=== PATIENT | female | born 1985 | race Caucasian/White ===

== ENCOUNTER 2017-06-18 18:46 | Emergency (ER) | payer OTHER, SELFPAY ==
[2017-06-18 18:54] VITALS: BP 108/68; PULSE 103; RESP 16; TEMP 37.7; O2SAT 99; BMI 26.6
--- NOTE | 2017-06-18 19:14 | HMH.EDGENADL ---
ED Disposition Condition on Discharge: Good - Critical Care Critical Care Time: No <Pako Perez Kurt - Last Filed: 06/18/17 19:55> <Brayan Bowden - Last Filed: 06/18/17 21:26> Clinical Impression: Tonsillitis, Strep pharyngitis, Influenza A Disposition: Home, Self-Care Instructions: DI for Strep Throat Additional Instructions: fluids and use meds and see pcp for follow up Prescriptions: cephALEXin [Keflex 500mg Cap] 500 mg PO Q8H #21 cap Ondansetron HCl [Zofran 4mg Tab] 4 mg PO Q8H #20 tab Oseltamivir Phosphate [Tamiflu 75mg Capsule] 75 mg PO BID #10 cap Referrals: Brayan Bowden MD [Primary Care Provider] - Forms: Work/School Release Attestation: On 06/18/17, the high probability of a clinically significant, sudden or life threatening deterioration of the following system(s) required my full and direct attention, intervention and personal management. The time I documented below is in addition to time spent performing reported procedures but includes the following listed in this critical care notation. Medical Decision Making - Medical Records Medical records reviewed: Yes: I reviewed the patient's medical records. - Lab Data Lab results reviewed: Yes: I reviewed the patient's lab results. Result diagrams: 06/18/17 19:35 - Alek Inquiry Pt receiving controlled substance: No <KeilyeveliaPako - Last Filed: 06/18/17 19:55> - Lab Data Result diagrams: 06/18/17 19:35 06/18/17 19:35 - CT Data CT Scan: Other Time Received: 20:[address] Reviewed: Yes: I have viewed the radiologist's interpretation <Brayan Bowden - Last Filed: 06/18/17 21:26> Vital Signs: 06/18/17 18:54 Temperature 99.9 F H Temperature Source Oral Pulse Rate [Brachial] 103 H Respiratory Rate 16 Blood Pressure [Right Arm] 108/68 Blood Pressure Mean [Right Arm] 81 Blood Pressure Source [Right Arm] Automatic Cuff Blood Pressure Position [Right Arm] Sitting 02 Sat by Pulse Oximetry 99 Oxygen Delivery Method Room Air - Lab Data Lab Results 06/18/17 19:00: Influenza Type A Ag Positive A, Influenza Type B Ag Negative, Group A Strep Rapid Positive A 06/18/17 19:35: WBC 18.3 H, RBC 4.73, Hgb 13.8, Hct 41.5, MCV 87.8, MCH 29.2, MCHC 33.3, RDW 13.2, Plt Count 181, MPV 8.0, Neut % (Auto) 90.3 H, Lymph % (Auto) 4.8 L, Alcorn % (Auto) 3.5, Eos % (Auto) 1.0, Baso % (Auto) 0.3, Neut # (Auto) 16.5 H, Lymph # (Auto) 0.9, Alcorn # (Auto) 0.6, Eos # (Auto) 0.2, Baso # (Auto) 0.1, Total Counted 100, Neutrophils % (Manual) 88 H, Lymphocytes % (Manual) 8 L, Monocytes % (Manual) 4, Platelet Estimate Normal, RBC Morphology Normal 06/18/17 19:35: Sodium 131 L, Potassium 3.4 L, Chloride 100, Carbon Dioxide 20 L, Anion Gap 14.4, BUN 9, Creatinine 0.79, Estimated Creat Clear 113, Estimated GFR 84, Est GFR ( Amer) 102, Glucose 103, Calcium 8.7, Total Bilirubin 0.7, AST 18, ALT 29, Alkaline Phosphatase 90, Total Protein 7.1, Albumin 3.5, Globulin 3.6 H, Albumin/Globulin Ratio 1.0 L 06/18/17 19:45: Lactic Acid 1.3 Orders (Tests/Meds): ED MEDICATIONS Discontinued Medications Generic Name Dose Route Start Last Admin Trade Name Freq PRN Reason Stop Dose Admin Lactated Ringer's 1,000 mls @ 999 mls/hr 06/18/17 19:30 Lactated Ringer's 1000 Ml Bag IV 06/18/17 20:30 .Q1H1M JOSE C Ceftriaxone Sodium 1 gm/ 50 mls @ 100 mls/hr 06/18/17 19:21 06/18/17 19:50 Sodium Chloride IV 06/18/17 19:50 100 mls/hr ONCE ONE Administration Sodium Chloride 500 mls @ 500 mls/hr 06/18/17 19:30 Sod Chloride 0.9% 500ml Bag IV 07/18/17 19:29 .Q1H JOSE C Sodium Chloride 500 mls @ 500 mls/hr 06/18/17 19:30 Sod Chloride 0.9% 500ml Bag IV 07/18/17 19:29 .Q1H JOSE C Sodium Chloride 500 mls @ 500 mls/hr 06/18/17 19:56 06/18/17 20:00 Sod Chloride 0.9% 500ml Bag IV 06/18/17 20:55 500 mls/hr .Q1H JOSE C Administration Sodium Chloride 500 mls @ 500 mls/hr 06/18/17 19:59 Sod Chloride 0.9% 500ml Bag I
[2017-06-18 19:17] LABS: Strep Scrn Group A (Rapid) Positive (Negative)
--- NOTE | 2017-06-18 19:27 | CT_ITS ---
CT soft tissue neck w con INDICATION: Neck pain, erythema, swelling, right peritonsillar abscess ITS.REASON: right tonsillar abscess ORDERING PHYSICIAN: Pako Perez MD PATIENT AGE: 32 years COMPARISON: None TECHNIQUE: Axial images are obtained with 75 mL of Isovue-370 contrast. Sagittal and coronal reformatted images are reviewed as well. FINDINGS: The nasopharynx has an unremarkable appearance. The orbits are unremarkable. There is a small air-fluid level in the left maxillary sinus. The frontal, sphenoid, ethmoid, and mastoid sinuses are unremarkable. There is hypertrophy of the parapharyngeal tonsils on both sides. A small prominent on the right. There is a ill-defined area of decreased attenuation involving the right parapharyngeal tonsil measuring 11 mm and may represent a developing abscess/phlegmonous change. No gas evident and no enhancing rim/capsule. Another subtle area of decreased attenuation involving the left parapharyngeal tonsil at 8 mm. Developing abscess/phlegmonous changes also considered here. The airway is narrowed at the hypopharynx and oropharynx. There is bilateral cervical adenopathy with nodes measuring up to 2.5 x 1.7 cm in the both the right and left jugulodigastric chain. The epiglottis has an unremarkable appearance. The lung apices are clear. No acute bony anomalies. IMPRESSION: Tonsillitis with hypertrophy of the parapharyngeal tonsils with bilateral areas of decreased attenuation consistent with developing abscess/phlegmonous change. There is moderate narrowing of the hypopharyngeal airway. Bilateral cervical adenopathy
[2017-06-18 19:47] LABS: Basophils # 0.1 K/mm3 (0-0.2); Basophils % 0.3 % (0.1-2.0); Eosinophils # 0.2 K/mm3 (0.0-0.4); Hematocrit 41.5 % (37.0-47.0); Hemoglobin 13.8 g/dL (12.2-16.2); Lymphocytes # 0.9 K/mm3 (0.7-4.5); Lymphocytes % 4.8 K/mm3 (10-50); Mean Corpuscular HGB Conc 33.3 g/dL (31.8-35.4); Mean Corpuscular Hemoglobin 29.2 pg (27.0-31.2); Mean Corpuscular Volume 87.8 fl (81-99); Monocytes # 0.6 K/mm3 (0.1-1.0); Monocytes % 3.5 % (1.7-9.3); Neutrophils # 16.5 K/mm3 (1.8-7.8); Neutrophils % 90.3 % (37.0-80.0); Platelet Count 181 K/mm3 (142-424); Red Blood Count 4.73 M/mm3 (4.20-5.40); Red Cell Distribution Width 13.2 % (11.5-17.5); White Blood Count 18.3 K/mm3 (4.8-10.8)
[2017-06-18 19:50] LABS: MANUAL DIFFERENTIAL MANUAL DIFFERENTIAL (MANUAL DIFF)
[2017-06-18 19:59] LABS: Alanine Aminotransferase 29 U/L (12-78); Albumin Level 3.5 gm/dL (3.4-5.0); Alkaline Phosphatase 90 U/L (46-116); Anion Gap 14.4 mEq/L (5-15); Aspartate Amino Transferase 18 U/L (15-37); Bilirubin,Total 0.7 mg/dL (0.2-1.0); Blood Urea Nitrogen 9 mg/dL (7-18); Calcium 8.7 mg/dL (8.5-10.1); Carbon Dioxide 20 mmol/L (21.0-32.0); Chloride 100 mmol/L (98-107); Creatinine Clearance Estimated 113 mL/min (0-300); Creatinine,Serum 0.79 mg/dL (0.55-1.02); Estimated Glomerular Filt Rate 84 ml/min (>60); GFR (African American) 102 ML/MIN (>60); Globulin 3.6 gm/dl (1.3-3.2); Glucose 103 mg/dL (74-106); Potassium 3.4 mmoL/L (3.5-5.1); Sodium 131 mmol/L (136-145); Total Protein,Serum 7.1 gm/dL (6.4-8.2)
[2017-06-18 20:14] LABS: Lactic Acid 1.3 mmol/L (0.4-2.0)
[2017-06-18 20:35] LABS: Lymphocytes % 8 % (10-50); Monocytes % 4 % (2-9); Neutrophils % 88 % (42-76); Total Cells Counted 100
[2017-06-18 20:38] LABS: Platelet Estimate Normal; RBC Morphology Normal
[2017-06-18 22:02] VITALS: BP 108/58; PULSE 91; RESP 16
== END 2017-06-18 22:05 | disposition home or self-care (01) ==
PROVIDERS: Emergency Provider Emergency Medicine; Family Provider Emergency Medicine; PCP Emergency Medicine
DX: J03.90 Acute tonsillitis, unspecified (principal); J02.0 Streptococcal pharyngitis; J09.X2 Influenza due to identified novel influenza A virus with other respiratory manifestations; F17.210 Nicotine dependence, cigarettes, uncomplicated; Z88.1 Allergy status to other antibiotic agents
CPT/HCPCS: 70491; 80053; 83605; 85007; 85025; 87040; 87275; 87276; 87430; 96360; 96365; 96366; 96375; 99284; J2405; Q9967

== ENCOUNTER → 2018-10-07 13:56 | Outpatient (CLI) | payer OTHER, SELFPAY ==
[2018-10-07 14:20] LABS: Anion Gap 10.8 mEq/L (5-15); Blood Urea Nitrogen 10 mg/dL (7-18); Calcium 8.9 mg/dL (8.5-10.1); Carbon Dioxide 28 mmol/L (21.0-32.0); Chloride 104 mmol/L (98-107); Estimated Glomerular Filt Rate 83 ml/min (>60); GFR (African American) 100 ML/MIN (>60); Glucose 82 mg/dL (74-106); Potassium 4.8 mmoL/L (3.5-5.1); Sodium 138 mmol/L (136-145)
== END ==
PROVIDERS: PCP Nurse Practitioner Family; Visit Provider Nurse Practitioner Family
DX: R09.1 Pleurisy (principal); R05 Cough; R06.02 Shortness of breath; R60.9 Edema, unspecified
CPT/HCPCS: 80048; 83880

== ENCOUNTER → 2019-10-28 17:26 | Outpatient (CLI) | payer OTHER, SELFPAY ==
[2019-10-28 17:47] LABS: Basophils # 0.1 K/mm3 (0-0.2); Basophils % 1.3 % (0.1-2.0); Eosinophils # 0.2 K/mm3 (0.0-0.4); Eosinophils % 1.8 % (0.1-12.0); Hematocrit 42.9 % (37.0-47.0); Hemoglobin 14.2 g/dL (12.2-16.2); Lymphocytes # 2.1 K/mm3 (0.7-4.5); Lymphocytes % 18.6 % (10-50); Mean Corpuscular HGB Conc 33.1 g/dL (31.8-35.4); Mean Corpuscular Hemoglobin 29.8 pg (27.0-31.2); Mean Platelet Volume 8.7 fl (7.4-10.4); Monocytes # 0.3 K/mm3 (0.1-1.0); Monocytes % 2.8 % (1.7-9.3); Neutrophils # 8.4 K/mm3 (1.8-7.8); Neutrophils % 75.6 % (37.0-80.0); Platelet Count 287 K/mm3 (142-424); Red Blood Count 4.77 M/mm3 (4.20-5.40); Red Cell Distribution Width 14.6 % (11.5-17.5); White Blood Count 11.1 K/mm3 (4.8-10.8)
[2019-10-28 18:14] LABS: Alanine Aminotransferase 18 U/L (12-78); Albumin Level 4.2 g/dl (3.5-5.0); Albumin/Globulin Ratio 1.6 (1.1-1.8); Alkaline Phosphatase 110 U/L (38-126); Anion Gap 11.2 mEq/L (5-15); Aspartate Amino Transferase 22 U/L (14-36); Bilirubin,Total 0.3 mg/dl (0.2-1.3); Blood Urea Nitrogen 7 mg/dl (7-17); Carbon Dioxide 28 mmol/L (22.0-30.0); Chloride 105 mmol/L (98-107); Chol/HDL Ratio 3.8 (1-3.5); Cholesterol 199 mg/dl (140-200); Estimated Glomerular Filt Rate 82 ml/min (>60); GFR (African American) 99 ML/MIN (>60); Globulin 2.7 g/dL (1.3-3.2); Glucose 92 mg/dl (74-100); HDL Cholesterol 52 mg/dl (40-60); Potassium 4.2 mmoL/L (3.5-5.1); Sodium 140 mmol/L (136-145); Total Protein,Serum 6.9 g/dl (6.3-8.2); Triglycerides 188 mg/dl (30-150); VLDL Cholesterol 38 mg/dL (0-40)
[2019-10-28 18:25] LABS: Direct LDL Cholesterol 146.62 mg/dL (100-129)
[2019-10-28 18:32] LABS: T4 (Thyroxine) 9.5 ug/dl (5.53-11.0)
[2019-10-28 18:45] LABS: Thyroid Stimulating Hormone 1.23 uIU/mL (0.465-4.68)
[2019-10-30 11:13] LABS: Vitamin D 25 Hydroxy 33.8 ng/mL (30.0-100.0)
== END ==
PROVIDERS: Visit Provider Physician Assistant
DX: R51 Headache (principal); R60.9 Edema, unspecified
CPT/HCPCS: 80053; 80061; 82652; 84436; 84443; 85025

== ENCOUNTER → 2020-08-24 12:53 | Outpatient (CLI) | payer OTHER, SELFPAY ==
--- NOTE | 2020-08-24 12:59 | US_ITS ---
PROCEDURE: US TRANSVAGINAL CLINICAL INDICATION: Pelvic pain, heavy cycles COMPARISON: No exams were available for comparison FINDINGS: UTERUS: 11cm x 6cmx 5cm with a combined endometrial thickness of 14.4mm LEFT OVARY: [id number] with a volume of 8.7ml. RIGHT OVARY: [id number] with a volume of 5.1ml. Nabothian cysts are present the cervical region IMPRESSION: Bulky uterus with thickened endometrium Dictated by: Perry Nair MD 08/24/2020 15:27 Perry Nair MD in OV 08/24/2020 15:27
[2020-08-24 15:23] LABS: Basophils # 0.1 K/mm3 (0-0.2); Basophils % 0.6 % (0.1-2.0); Eosinophils # 0.2 K/mm3 (0.0-0.4); Eosinophils % 2.1 % (0.1-12.0); Hematocrit 42.1 % (37.0-47.0); Hemoglobin 13.8 g/dL (12.2-16.2); Lymphocytes # 2.2 K/mm3 (0.7-4.5); Lymphocytes % 21.6 % (10-50); Mean Corpuscular HGB Conc 32.9 g/dL (31.8-35.4); Mean Corpuscular Volume 88.4 fl (81-99); Mean Platelet Volume 8.6 fl (7.4-10.4); Monocytes # 0.4 K/mm3 (0.1-1.0); Neutrophils # 7.3 K/mm3 (1.8-7.8); Neutrophils % 71.8 % (37.0-80.0); Platelet Count 298 K/mm3 (142-424); Red Blood Count 4.76 M/mm3 (4.20-5.40); Red Cell Distribution Width 14.5 % (11.5-17.5); White Blood Count 10.2 K/mm3 (4.8-10.8)
[2020-08-24 15:36] LABS: Chloride 108 mmol/L (98-107); Sodium 140 mmol/L (136-145)
[2020-08-24 15:37] LABS: HCG Qualitative, Serum Negative (Negative); Potassium 3.9 mmoL/L (3.5-5.1)
[2020-08-24 15:39] LABS: Alanine Aminotransferase 18 U/L (12-78); Alkaline Phosphatase 115 U/L (38-126); Anion Gap 12.9 mEq/L (5-15); Aspartate Amino Transferase 23 U/L (14-36); Bilirubin,Total 0.4 mg/dl (0.2-1.3); Blood Urea Nitrogen 7 mg/dl (7-17); Carbon Dioxide 23 mmol/L (22.0-30.0); Estimated Glomerular Filt Rate 114 ml/min (>60); GFR (African American) 138 ML/MIN (>60)
[2020-08-24 15:40] LABS: Albumin Level 4.2 g/dl (3.5-5.0); Albumin/Globulin Ratio 1.5 (1.1-1.8); Calcium 9.6 mg/dl (8.4-10.2); Globulin 2.8 g/dL (1.3-3.2); Glucose 99 mg/dl (74-100)
== END ==
PROVIDERS: PCP Emergency Medicine; Visit Provider Nurse Practitioner Family
DX: R10.2 Pelvic and perineal pain (principal); N92.6 Irregular menstruation, unspecified; R10.9 Unspecified abdominal pain; R11.0 Nausea; M54.5 Low back pain
CPT/HCPCS: 76830; 80053; 84703; 85025

== ENCOUNTER → 2020-08-24 15:13 | Outpatient (CLI) | payer OTHER, SELFPAY | PROVIDERS: Visit Provider Nurse Practitioner Family | DX: R10.9 Unspecified abdominal pain (principal); R11.0 Nausea | CPT/HCPCS: 80053; 84703; 85025 ==

== ENCOUNTER → 2020-09-29 09:07 | Outpatient (CLI) | payer OTHER, SELFPAY ==
[2020-09-29 09:39] LABS: Basophils # 0.1 K/mm3 (0-0.2); Basophils % 0.7 % (0.1-2.0); Eosinophils # 0.3 K/mm3 (0.0-0.4); Eosinophils % 3.1 % (0.1-12.0); Hematocrit 42.4 % (37.0-47.0); Hemoglobin 13.9 g/dL (12.2-16.2); Lymphocytes % 20.6 % (10-50); Mean Corpuscular HGB Conc 32.9 g/dL (31.8-35.4); Mean Corpuscular Hemoglobin 28.3 pg (27.0-31.2); Mean Platelet Volume 7.7 fl (7.4-10.4); Monocytes # 0.4 K/mm3 (0.1-1.0); Monocytes % 3.5 % (1.7-9.3); Neutrophils # 7.1 K/mm3 (1.8-7.8); Platelet Count 233 K/mm3 (142-424); Red Blood Count 4.93 M/mm3 (4.20-5.40); Red Cell Distribution Width 14.4 % (11.5-17.5); White Blood Count 9.8 K/mm3 (4.8-10.8)
[2020-09-29 10:43] LABS: Chloride 109 mmol/L (98-107); Sodium 137 mmol/L (136-145)
[2020-09-29 10:44] LABS: Potassium 3.8 mmoL/L (3.5-5.1)
[2020-09-29 10:46] LABS: Blood Urea Nitrogen 8 mg/dl (7-17); Estimated Glomerular Filt Rate 114 ml/min (>60); GFR (African American) 138 ML/MIN (>60)
[2020-09-29 10:47] LABS: Anion Gap 12.8 mEq/L (5-15); Calcium 9.3 mg/dl (8.4-10.2); Carbon Dioxide 19 mmol/L (22.0-30.0); Glucose 109 mg/dl (74-100)
[2020-09-29 10:48] LABS: HCG Qualitative, Serum Negative (Negative)
== END ==
PROVIDERS: Visit Provider Nurse Practitioner Obstetrics & Gynecology
DX: Z01.818 Encounter for other preprocedural examination (principal); Z11.52 Encounter for screening for COVID-19; N80.0 Endometriosis of uterus; N85.2 Hypertrophy of uterus; N92.0 Excessive and frequent menstruation with regular cycle; R10.2 Pelvic and perineal pain
CPT/HCPCS: 80048; 84703; 85025; U0003

== ENCOUNTER 2020-10-02 08:08 | Observation (INO) | payer OTHER, SELFPAY ==
[2020-09-28 13:28] VITALS: BMI 32.5
[2020-10-02] VITALS (24 sets, daily range): BP systolic 97–127; BP diastolic 55–78; PULSE 50–100; RESP 16–18; TEMP 36.2–43; O2SAT 90–100
--- NOTE | 2020-10-02 07:03 | P.PN_ITS ---
[facility] Anesthesia Checklist - Structural Data Admitted From: Home Planned Operative Procedure/s: lavh,bso Consent for Planned Operative Procedure(s) Verified: Yes - Additional verifications Anesthesia Reactions: No Hx Blood Transfusions: No Blood Transfusion Reaction: No - Airway Assessment C-Spine Mobility Assessed: Yes TMJ Mobility Assessed: Yes Dentition: Edentulous - Neurological Assessment Level of Consciousness: Awake, Alert, Appropriate - Anesthesia Plan Anesthesia Risk discussed: Yes Anesthesia Plan: Verified ASA Class: II Anesthesia Type: General [facility] History I have reviewed the patient's past medical history: Yes Medical History: Denies:: Cancer, Diabetes Mellitus Type 1, Diabetes Mellitus Type 2, MRSA, Seizures *Have you ever received a pneumonia vaccine?: No *Have you received a flu vaccine this season?: Yes Other Medical History: Denies: Blood Transfusion Reaction Anesthesia experience/problems:: none Other Surgeries: Yes: No Previous Surgery, Appendectomy, Other Amputation: No Fractures: Yes (L ANKLE) - *Social History Last grade of school completed: Some college Smoking Status: Current every day smoker Tobacco Type: cigarettes # Packs/Day (cigarettes): 1 Alcohol Intake: never Substance Use Type: denies use *Occupational Status:: employed Housing: house Household Members: family *Travel in the last 8 weeks: None Family Hx:: Non-contributory
--- NOTE | 2020-10-02 09:45 | P.PN_ITS ---
[facility] Anesthesia Record Part I Intake, IV Amount: 1,400 Estimated blood loss (mL): 150 Urine output (mL): 50 Blood Pressure: 127/74 SaO2: 90 Pulse Rate: 100 Respiratory Rate: 16 Temperature: 99.5 F Patient is:: Drowsy, Stable Stable to PACU at:: 09:40
--- NOTE | 2020-10-02 10:00 | HMH.OPNOTE ---
Date of procedure: 10/02/20 Pre-op Diagnosis:: Menorrhagia, uterine hypertrophy, adenomyosis, pelvic pain, right thigh lesion Post-op Diagnosis:: Menorrhagia, adenomyosis, uterine hypertrophy, pelvic pain, right thigh lesion Procedure performed:: Laparoscopically assisted vaginal hysterectomy, bilateral salpingectomy, removal of right thigh skin lesion Surgeon:: Robbin Oswald MD Graphics Edit Technician(s):: Rox Deras SUPPORT DBA:: Kalin Martin Anesthesia: GETA Estimated blood loss (mL): 150 Clinical Note:: She is a 35-year-old lady who is had a previous tubal occlusion. She has had increasing heavy periods as well as pain with intercourse and pain with her periods. Ultrasound showed that the uterus was somewhat enlarged. She also had a 5 mm raised lesion on her thigh that was multicolored. She says that this bothers her when she was shaving and as result of that we elected to remove this at the time of her hysterectomy as well. Operative findings:: She had a small multicolored raised lesion on the right thigh. She had a normal appearing pelvis. The uterus itself was enlarged and bulky. The tubes had been previously occluded. Ovaries and tubes otherwise appeared normal. Operative note:: She was taken to the operating room where general anesthesia was found be adequate. She was prepped and draped in normal sterile fashion in the semilithotomy position. She had a small lesion on the right thigh and using toothed pickups and Metzenbaum scissors I shaved this off the thigh. Silver nitrate was applied. Sterile dressing applied. A weighted speculum was placed in the vagina and the anterior lip of the cervix was grasped with a tenaculum. An acorn uterine manipulator was then placed within the cervical os. I then changed gloves. I injected 10 cc of 0.5% ropivacaine around the umbilicus and made a small incision within the umbilicus. I inserted a Veress needle into the abdominal cavity. The abdominal cavity was then insufflated with carbon dioxide gas to a pressure of 20 mmHg. I then inserted an 11 mm trocar under direct vision. I injected through and through the pubic hairline, made a small incision here and inserted a 5 mm trocar under direct vision. I identified the inferior epigastric arteries on the left side, went lateral to these and injected through and through. I then made a small incision and inserted an 11 mm trocar under direct vision. A similar 11 mm trocar was placed on the right side. The left round ligament was then grasped and cut through with harmonic scalpel. This was followed by opening up the peritoneum anteriorly to the midline. I then grasped the tube on the left side and cut through this. This is followed by cutting through the left utero-ovarian ligament. I used Harmonic scalpel on the coagulation mode. I then took down the posterior aspect of the broad ligament to the level of the uterosacral ligament. I then skeletonized the uterine arteries on the left side and placed hemoclips on these. Using the harmonic scalpel on coagulation mode adjacent to the cervix I then took down these uterine arteries. I then further freed up the bladder anteriorly and laterally on the left side. I then turned my attention to the right side where I grasped the right round ligament. The right tube was adherent to the right pelvic sidewall and using harmonic scalpel I was able to free this up. I then cut through the right round ligament. I then took down the anterior peritoneum to the midline joining up with the other side. I further dissected the bladder off. The posterior aspect of the right broad ligament was then taken down with harmonic scalpel. I skeletonized the uterine arteries on the right side. I applied hemoclips to the uterine arteries and staying adjacent to the cervix on the right side I took down the uterine arteries with harmonic scalpel on coagulation mode. I further freed up the bladder. We then assured hemostasis.
--- NOTE | 2020-10-02 10:10 | PC.NURSE ---
Report received from Yoselin KAPLAN.
--- NOTE | 2020-10-02 10:20 | PC.NURSE ---
Pt. arrived to room 279 via bed.
--- NOTE | 2020-10-02 10:52 | HMH.ANESII ---
[facility] Anesthesia Record Part II Discharge Time: 10:10 Destination: Obstetric PACU nurse assessment reviewed?: Yes Patient Condition:: Good Anesthesia Complications:: None Swallowing reflex intact?: Yes Cyanosis?: No Blood Pressure: 106/64 Pulse Rate: 80 Temperature: 97.1 F Mental Status: Alert & Oriented Pain level:: 4 Nausea and/or vomitting:: None Intake, IV Amount: 0
[2020-10-02 16:18] LABS: Hematocrit 39.3 % (37.0-47.0); Hemoglobin 12.6 g/dL (12.2-16.2)
[2020-10-02 17:08] LABS: Microscopic,Cath URINE MICROSCOPIC (MICROSCOPIC)
[2020-10-02 17:16] LABS: Appearance,Urine/Cath CLEAR (Clear); Bilirubin,Cath Negative (Negative); Blood, Urine/Cath Negative (Negative); Color,Urine/Cath STRAW (Yellow); Glucose,Urine/Cath (UA) Negative (Negative); Ketones,Urine/Cath Negative (Negative); Leukocyte Esterase,Cath Negative (Negative); Nitrate,Cath Negative (Negative); Protein,Urine/Cath Negative (Negative); Urobilinogen,Cath 0.2 EU/dl (0.2)
[2020-10-02 17:46] LABS: Bacteria,Urine/Cath 1+ /lpf
--- NOTE | 2020-10-02 18:20 | PC.NURSE ---
AUGUST Laboy placed on pt. Pt. Vomitted 250 ml. MD Order from Dr. Oswald received to give Scopolamine patch. Pt. reports AUGUST Binder is helping pain. Pain level down to 4/10. Pt. denies needs, will continue to monitor.
[2020-10-03] VITALS: BP 104/52; PULSE 68; RESP 16; O2SAT 95
[2020-10-03 04:00] VITALS: BP 108/69; PULSE 81; RESP 16; TEMP 36.9; O2SAT 95
--- NOTE | 2020-10-03 04:05 | PC.NURSE ---
PT HAS RESTED WELL THIS SHIFT, PAIN WELL CONTROLLED. A&O X 4. VITAL SIGNS STABLE, AFEBRILE. HEART RATE REGULAR, NO EDEMA NOTED. IV PATENT TO RIGHT FOREARM. PT TOLERATED CLEAR LIQUID DIET AND CRACKER. NO N/V THIS SHIFT. LUNGS CTAB. PT USING INCENTIVE SPIROMETER INSTRUCTED. OCCASIONAL COUGH NOTED WITH USE. PILLOW PROVIDED FOR SPLINTING. ABD SOFT AND MILDLY TENDER. BOWEL SOUNDS ACTIVE X 4 QUADS. LAP SITES X 4 NOTED. DRESSINGS C/D/I. GARCIA CATH PATENT WITH DARK YELLOW URINE. SCANT AMOUNT OF VAGINAL BLEEDING NOTED TO NEFTALI-PAD. SCUDS IN PLACE BILATERALLY. NO NEEDS AT THIS TIME. CALL LIGHT WITHIN REACH. WILL CONTINUE TO MONITOR. S.O. AT BEDSIDE
[2020-10-03 07:21] LABS: Basophils % 0.2 % (0.1-2.0); Eosinophils # 0.1 K/mm3 (0.0-0.4); Eosinophils % 0.3 % (0.1-12.0); Hematocrit 35.7 % (37.0-47.0); Hemoglobin 11.7 g/dL (12.2-16.2); Lymphocytes % 19.8 % (10-50); Mean Corpuscular HGB Conc 32.8 g/dL (31.8-35.4); Mean Corpuscular Hemoglobin 28.8 pg (27.0-31.2); Mean Corpuscular Volume 87.8 fl (81-99); Monocytes # 0.6 K/mm3 (0.1-1.0); Monocytes % 3.9 % (1.7-9.3); Neutrophils # 11.3 K/mm3 (1.8-7.8); Neutrophils % 75.8 % (37.0-80.0); Platelet Count 235 K/mm3 (142-424); Red Blood Count 4.07 M/mm3 (4.20-5.40); Red Cell Distribution Width 14.4 % (11.5-17.5); White Blood Count 14.9 K/mm3 (4.8-10.8)
[2020-10-03 07:29] LABS: Anion Gap 9.9 mEq/L (5-15); Blood Urea Nitrogen 11 mg/dl (7-17); Calcium 8.4 mg/dl (8.4-10.2); Carbon Dioxide 24 mmol/L (22.0-30.0); Chloride 109 mmol/L (98-107); Creatinine Clearance Estimated 153 mL/min (50-200); Estimated Glomerular Filt Rate 95 ml/min (>60); GFR (African American) 115 ML/MIN (>60); Glucose 92 mg/dl (74-100); Potassium 3.9 mmoL/L (3.5-5.1); Sodium 139 mmol/L (136-145)
--- NOTE | 2020-10-03 07:47 | HMH.PHAVTE ---
[facility] Pharm[facility] VTE Monitoring - Patient Demographics Admission date: 10/02/20 Report Date: 10/03/20 Time: 07:47 Allergies/Adverse Reactions: Patient Allergies nitrofurantoin [From MACROBID] Allergy (Mild, Verified 10/02/20 06:20) Height: 1.63 m Weight: 86.183 kg - VTE Risk Labs: VTE Related Lab Results Hgb 11.7 g/dL (12.2-16.2) L 10/03/20 06:37 Hct 35.7 % (37.0-47.0) L 10/03/20 06:37 Plt Count 235 K/mm3 (142-424) 10/03/20 06:37 BUN 11 mg/dl (7-17) 10/03/20 06:37 Creatinine 0.70 mg/dl (0.52-1.04) 10/03/20 06:37 Estimated Creat Clear 153 mL/min (50-200) 10/03/20 06:37 Was VTE Risk Assessment Performed: Yes VTE Score: 1 VTE Risk Level: Very Low Risk - Prophylaxis VTE Prophylaxis Ordered?: Yes Types of VTE Prophylaxis: IPCS Thigh High, Pharmacological Location of Applied Device: Bilateral Lower Extremeties Pharmacologic Type: Enoxaparin
[2020-10-03 08:00] VITALS: BP 118/78; PULSE 83; RESP 18; TEMP 36.8; O2SAT 95
--- NOTE | 2020-10-03 08:40 | HMH.HP ---
*Admission Date: 10/02/20 *Chief complaint: Heavy periods, pelvic pain *History of present illness: She is a 35-year-old lady who complains of very heavy periods. She had an ultrasound that showed a bulky anteverted uterus. Her uterus was tender to palpate. I suspect she had adenomyosis. After having discussed the risk and benefit she elected to have a laparoscopically assisted vaginal hysterectomy and bilateral salpingectomy. [facility] History I have reviewed the patient's past medical history: Yes Medical History: Denies:: Cancer, Diabetes Mellitus Type 1, Diabetes Mellitus Type 2, MRSA, Seizures *Have you ever received a pneumonia vaccine?: No *Have you received a flu vaccine this season?: No Other Medical History: Denies: Blood Transfusion Reaction Anesthesia experience/problems:: none Other Surgeries: Yes: No Previous Surgery, Appendectomy, Other Amputation: No Fractures: Yes (L ANKLE) - *Social History Last grade of school completed: Some college Smoking Status: Current every day smoker Tobacco Type: cigarettes # Packs/Day (cigarettes): 1 Alcohol Intake: never Substance Use Type: denies use *Occupational Status:: employed Housing: house Household Members: family *Travel in the last 8 weeks: None Family Hx:: Non-contributory Review of Systems - Review of Systems Review of systems:: pertinent systems reviewed and negative unless documented below Meds Home Medications Medication Instructions Recorded Confirmed Type No Known Home Medications 08/24/20 10/02/20 History Allergies Allergy/AdvReac Type Severity Reaction Status Date / Time nitrofurantoin Allergy Mild Verified 10/02/20 06:20 [From MACROBID] Exam Vital signs and Labs for Last 24 Hours: Temp Pulse Resp BP Pulse Ox 98.4 F 81 16 108/69 L 95 10/03/20 04:00 10/03/20 04:00 10/03/20 04:00 10/03/20 04:00 10/03/20 04:00 Laboratory Results - last 24 hr 10/02/20 16:00: Hgb 12.6, Hct 39.3 10/02/20 : Urine Color Straw, Urine Appearance Clear, Urine pH 6.0, Ur Specific [place] 1.010, Urine Protein Negative, Urine Glucose (UA) Negative, Urine Ketones Negative, Urine Blood Negative, Urine Nitrate Negative, Urine Bilirubin Negative, Urine Urobilinogen 0.2, Ur Leukocyte Esterase Negative, Urine RBC 3-5, Urine WBC 3-5, Ur Squamous Epith Cells 3-5, Urine Bacteria 1+ 10/03/20 06:37: WBC 14.9 H, RBC 4.07 L, Hgb 11.7 L, Hct 35.7 L, MCV 87.8, MCH 28.8, MCHC 32.8, RDW 14.4, Plt Count 235, MPV 8.0, Neut % (Auto) 75.8, Lymph % (Auto) 19.8, Dickinson % (Auto) 3.9, Eos % (Auto) 0.3, Baso % (Auto) 0.2, Neut # (Auto) 11.3 H, Lymph # (Auto) 3.0, Dickinson # (Auto) 0.6, Eos # (Auto) 0.1, Baso # (Auto) 0.0 10/03/20 06:37: Sodium 139, Potassium 3.9, Chloride 109 H, Carbon Dioxide 24, Anion Gap 9.9, BUN 11, Creatinine 0.70, Estimated Creat Clear 153, Estimated GFR 95, Est GFR ( Amer) 115, Glucose 92, Calcium 8.4 I & O for Last 24 hours: Intake & Output 09/30/20 10/01/20 10/02/20 10/03/20 11:59 11:59 11:59 11:59 Intake Total 1400 / 1400 2326 / 2326 Output Total 600 / 600 Balance 1380 / 1380 1726 / 1726 - Constitutional no acute distress - *Routine HEENT Exam Head: Present: normocephalic Eye: Present: EOMI, PERRL ENT: Present: mucous membranes moist - *Routine Neck Exam Present: supple, full ROM - *Routine Respiratory Exam Absent: accessory muscle use (good air entry bilaterally), wheezes, crackles - *Routine Cardiovascular Exam Present: RRR. Absent: murmur - *Routine Abdominal Exam Present: soft, normoactive bowel sounds. Absent: tenderness, rebound, guarding, mass - *Routine Rectal Exam Patient deferred: visual exam, digital exam - *Routine Exam Patient deferred: external exam, groin exam, perineal exam - *Routine Extremities Exam Present: full ROM. Absent: cyanosis, edema, calf tenderness - *Routine Skin Exam Present: intact (good color) - *Routine Neurological Exam Present: alert, oriented X3 - Rout
--- NOTE | 2020-10-03 08:42 | HMH.DCSUM ---
General - General Admission date:: 10/02/20 Discharge date: 10/03/20 HPI HPI: She is a 35-year-old lady who complains of very heavy periods. She had an ultrasound that showed a bulky anteverted uterus. Her uterus was tender to palpate. I suspect she had adenomyosis. After having discussed the risk and benefit she elected to have a laparoscopically assisted vaginal hysterectomy and bilateral salpingectomy. Hospital Course Hospital Course: On October 03, 2019 when she underwent a laparoscopic-assisted vaginal hysterectomy and bilateral salpingectomy. She also had a small lesion on her inner right thigh and this was removed as well. It was sent to pathology. She has done well postoperatively and has remained afebrile throughout her hospitalization. She is eating and drinking and ambulating. Her pain is reasonably well controlled. She did have some nausea post operatively and a scopolamine patch as well as Zofran seem to help with this. She is voiding well. She is being discharged home this morning to follow-up with me in approximately 2 weeks time. She was given a prescription for Percocet 5/325 number 20 tablets. She will also take ibuprofen. She will continue with her home medications. She was given the usual instructions with respect to limiting her activity, driving and sexual activity. Her condition on discharge is stable and improved. Objective Vital signs: Temp Pulse Resp BP Pulse Ox 98.4 F 81 16 108/69 L 95 10/03/20 04:00 10/03/20 04:00 10/03/20 04:00 10/03/20 04:00 10/03/20 04:00 no acute distress - *Routine HEENT Exam Head: Present: normocephalic Eye: Present: EOMI, PERRL ENT: Present: mucous membranes moist - *Routine Neck Exam Present: supple - *Routine Respiratory Exam Present: CTA bilaterally - *Routine Cardiovascular Exam Present: RRR - *Routine Abdominal Exam Present: soft, normoactive bowel sounds. Absent: tenderness Comments: Her incisions are clean and dry. Results Labs on day of discharge: Labs from last 24 hours 10/03/20 10/03/20 10/02/20 06:37 06:37 Unknown WBC 14.9 H RBC 4.07 L Hgb 11.7 L Hct 35.7 L MCV 87.8 MCH 28.8 MCHC 32.8 RDW 14.4 Plt Count 235 MPV 8.0 Neut % (Auto) 75.8 Lymph % (Auto) 19.8 Clinch % (Auto) 3.9 Eos % (Auto) 0.3 Baso % (Auto) 0.2 Neut # (Auto) 11.3 H Lymph # (Auto) 3.0 Clinch # (Auto) 0.6 Eos # (Auto) 0.1 Baso # (Auto) 0.0 Sodium 139 Potassium 3.9 Chloride 109 H Carbon Dioxide 24 Anion Gap 9.9 BUN 11 Creatinine 0.70 Estimated Creat Clear 153 Estimated GFR 95 Est GFR ( Amer) 115 Glucose 92 Calcium 8.4 Urine Color Straw Urine Appearance Clear Urine pH 6.0 Ur Specific [place] 1.010 Urine Protein Negative Urine Glucose (UA) Negative Urine Ketones Negative Urine Blood Negative Urine Nitrate Negative Urine Bilirubin Negative Urine Urobilinogen 0.2 Ur Leukocyte Esterase Negative Urine RBC 3-5 Urine WBC 3-5 Ur Squamous Epith Cells 3-5 Urine Bacteria 1+ 10/02/20 16:00 WBC RBC Hgb 12.6 Hct 39.3 MCV MCH MCHC RDW Plt Count MPV Neut % (Auto) Lymph % (Auto) Clinch % (Auto) Eos % (Auto) Baso % (Auto) Neut # (Auto) Lymph # (Auto) Clinch # (Auto) Eos # (Auto) Baso # (Auto) Sodium Potassium Chloride Carbon Dioxide Anion Gap BUN Creatinine Estimated Creat Clear Estimated GFR Est GFR ( Amer) Glucose Calcium Urine Color Urine Appearance Urine pH Ur Specific [place] Urine Protein Urine Glucose (UA) Urine Ketones Urine Blood Urine Nitrate Urine Bilirubin Urine Urobilinogen Ur Leukocyte Esterase Urine RBC Urine WBC Ur Squamous Epith Cells Urine Bacteria DS: Diagnosis - Discharge Diagnosis (1) Pelvic pain Status: Acute (2) Uterine hypertrophy Status: Acute (3) Ad
== END 2020-10-03 11:27 | disposition home or self-care (01) ==
LOC: OB 08:09
PROVIDERS: Admitting Provider Nurse Practitioner Obstetrics & Gynecology; PCP Emergency Medicine; Visit Provider Nurse Practitioner Obstetrics & Gynecology
PROC: 0UT9FZZ Resection of Uterus, Via Natural or Artificial Opening With Percutaneous Endoscopic Assistance (ICD-10-PCS; CPT 58552; principal; 2020-10-02 07:30)
DX: N92.0 Excessive and frequent menstruation with regular cycle; N80.0 Endometriosis of uterus; R10.2 Pelvic and perineal pain; L98.9 Disorder of the skin and subcutaneous tissue, unspecified; N85.2 Hypertrophy of uterus
CPT/HCPCS: 58552; 11300; 36415; 80048; 81001; 85014; 85018; 85025; 94761; 96372; 96374; G0283; G0378; J2405; J2710

== ENCOUNTER → 2020-12-13 14:58 | Outpatient (CLI) | payer OTHER, SELFPAY | PROVIDERS: Visit Provider Nurse Practitioner Family | DX: M54.5 Low back pain (principal) | CPT/HCPCS: 87086 ==